=== PATIENT | female | born 1995 | race Caucasian/White ===

== ENCOUNTER 2017-06-11 02:29 | Inpatient (IN) | payer OTHER ==
[~2017-06-11] VITALS: Ht 152.4 cm; Wt 109.0 kg
[2017-06-11] VITALS (8 sets, daily range): BP systolic 129–152; BP diastolic 67–91
[~2017-06-11 02:29] MED LIST: ANUS2.5C2 PR; COLA100C5 PO; MOM30SS PO; MOTR200T44 PO; PREN1TAB11 PO; TUMS500C PO; TYLE325T5 PO
[2017-06-11] MEDS ORDERED: OXYTOCIN INJ 10 UNITS/ML VIAL (J2590) IM ONE (03:17)
[2017-06-11] MEDS ORDERED: DIBUCAINE 1% OINTMENT 30GM TOP PRN (03:30)
[2017-06-11] MEDS ORDERED: PROMETHAZINE 25 MG TAB PO PRN (03:30)
[2017-06-11] MEDS ORDERED: CALCIUM CARBONATE 500 MG CHEW U/D PO PRN (03:30)
[2017-06-11] MEDS ORDERED: MEASLES,MUMPS,RUBELLA VACCINE INJ (MMR-II) (90707) SC SCH (03:30)
[2017-06-11] MEDS ORDERED: ONDANSETRON 4MG/2ML VIAL (J2405) IV PRN (03:30)
[2017-06-11] MEDS ORDERED: RHOGAM 300 MCG (1500 IU) INJ (J2790) IM SCH (03:30)
[2017-06-11] MEDS ORDERED: METHYLERGONOVINE MALEATE 0.2 MG/ML VIAL (J2210) IM PRN (03:30)
[2017-06-11] MEDS ORDERED: TUMS500C PO (03:31)
[2017-06-11] MEDS: ACETAMINOPHEN 500 MG TAB PO PRN ×2 (04:45→14:11)
[2017-06-11 04:54] LABS: MEAN CORPUSCULAR HEMOGLOBIN 22.7 pg (27.0-33.0); MEAN CORPUSCULAR VOLUME 73.2 fl (80.0-96.0); RED CELL DISTRIBUTION WIDTH 16.7 % (11.5-14.5); WHITE BLOOD COUNT 13.4 K/mm3 (4.0-10.0)
[2017-06-11] MEDS: IBUPROFEN 800 MG TAB PO PRN ×2 (08:32→19:49)
[2017-06-11] MEDS: DOCUSATE SODIUM 100 MG CAP PO SCH ×2 (08:32→19:49)
[2017-06-11] MEDS: PRENATAL VITAMINS CHEWABLE TABLET PO SCH (08:32)
[2017-06-12 06:39] VITALS: BP 129/94
[2017-06-12] MEDS: DOCUSATE SODIUM 100 MG CAP PO SCH ×2 (08:18→21:00)
[2017-06-12] MEDS: PRENATAL VITAMINS CHEWABLE TABLET PO SCH (08:18)
[2017-06-12] MEDS: IBUPROFEN 800 MG TAB PO PRN (11:43)
[2017-06-12] MEDS: ACETAMINOPHEN 500 MG TAB PO PRN (13:30)
[2017-06-12 17:47] VITALS: BP 149/91
[2017-06-13 06:10] VITALS: BP 139/68
--- NOTE | 2017-06-13 07:45 | DS.PDOC ---
Discharge Summary General Date of Admission Jun 11, 2017 at 03:03 Date of Discharge [id number] Discharge Summary PROCEDURES PERFORMED DURING STAY: spontaneous vaginal delivery ADMITTING DIAGNOSIS: 1. Active Labor DISCHARGE DIAGNOSES: 1. Healthy male HOSPITAL COURSE: Admitted for active labor and delivery. Uncomplicated, see delivery note. DISCHARGE MEDICATIONS: Motrin, Tylenol, Colace, Lanolin Physical exam: see note from this morning LABORATORY DATA: Please see below. ACTIVITY: as tolerated. Nothing in vagina for 6 weeks. DIET: regular DISPOSITION:stable TIME SPENT ON DISCHARGE: Greater than 15 minutes. Sessions Vital Signs/I&Os Vital Signs Date Time Temp Pulse Resp B/P (MAP) Pulse Ox O2 Delivery O2 Flow Rate FiO2 06/13/17 06:10 97.7 69 18 139/68 (91) 98 Room Air I&O- Last 24 Hours up to 6 AM 06/13/17 06:00 Intake Total 720 ml Balance 720 ml Discharge Medications Scheduled Multivitamins/ ( Vitamin 27-0.8 mg) 1 Tab Tab, 1 TAB PO DAILY, ( Reported) Scheduled PRN Acetaminophen (Tylenol) 325 Mg Tab, 1,000 MG PO Q6HP PRN for PAIN, (Reported) Calcium Carbonate (Tums) 500 Mg Chw, 1,000 MG PO Q4HP PRN for HEARTBURN, ( Reported) Ibuprofen (Motrin Ib) 200 Mg Tab, 800 MG PO Q8HP PRN for PAIN, (Reported) Allergies Coded Allergies: No Known Drug Allergy (Verified Allergy, Unknown, 06/01/14) Aspirin (Verified Adverse Reaction, Unknown, PREFERS NOT TO TAKE, 06/01/14) LICO TALBERT MD Jun 13, 2017 07:45
--- NOTE | 2017-06-13 07:49 | IPNPDOC ---
Text Note Date of Service The patient was seen on 06/13/17. NOTE PPD1 prog note States feeling well, no complaints. No heavy VB. Pain controlled. Voiding, ambulatory. Bonding well and breast/bottle feeding. VSSAF CTAB RRR Ut at U-2, firm Ext no CCE a/p: Doing well. d/c this morning. To bonding if baby not released. Sessions VS,Kelli, I+O VSKelli I+O Vital Signs Date Time Temp Pulse Resp B/P (MAP) Pulse Ox O2 Delivery O2 Flow Rate FiO2 06/13/17 06:10 97.7 69 18 139/68 (91) 98 Room Air I&O- Last 24 Hours up to 6 AM 06/13/17 06:00 Intake Total 720 ml Balance 720 ml SESSIONS,LICO Walker MD Jun 13, 2017 07:49
[2017-06-13] MEDS: ACETAMINOPHEN 500 MG TAB PO PRN (08:25)
[2017-06-13] MEDS: PRENATAL VITAMINS CHEWABLE TABLET PO SCH (08:25)
[2017-06-13] MEDS: DOCUSATE SODIUM 100 MG CAP PO SCH (09:00)
[2017-06-13] MEDS ORDERED: PRENTAB9 PO (09:06)
[2017-06-13] MEDS ORDERED: COLA100C5 PO (09:07)
--- NOTE | 2017-06-18 21:18 | IPN ---
DATE: 06/11/2017 This patient and requested circumcision of their male . After discussing the risks and benefits of circumcision, the medical and nonmedical indications, the penile block and aftercare, they expressed understanding of the penile block and aftercare, signed and witnessed the consent form. We await the clearance by the hot patcher.
== END 2017-06-13 18:15 | disposition home or self-care (01) | DRG 775 ==
LOC: M LDO 02:29 → M LDI 03:03 → M OBS 05:02
PROVIDERS: ADMIT Obstetrics & Gynecology; ATTEND Obstetrics & Gynecology
PROC: 10E0XZZ Delivery of Products of Conception, External Approach (ICD-10-PCS; principal; 2017-06-11)
DX: O62.3 Precipitate labor (principal); Z3A.37 37 weeks gestation of pregnancy; O70.0 First degree perineal laceration during delivery; Z37.0 Single live birth

== ENCOUNTER → 2018-10-29 | Outpatient (REF) | payer OTHER ==
[~2018-10-29] MED LIST changes: +PRENTAB9 PO
== END ==
LOC: M SFHCLERA 14:13
PROVIDERS: ATTEND Nurse Practitioner Family
DX: R53.81 Other malaise (principal)